=== PATIENT | female | born 1995 | race African-American/Black ===

== ENCOUNTER 2017-06-06 20:35 | Emergency (ER) | payer MEDICAID ==
[~2017-06-06] VITALS: Ht 170.2 cm; Wt 73.5 kg
[2017-06-06 21:34] VITALS: BP 116/77
[2017-06-06] MEDS ORDERED: Acetaminophen 500mg (ES) tab ORAL ONE (21:45)
[2017-06-06 23:08] VITALS: BP 112/81
[2017-06-06] MEDS ORDERED: IBUPROFEN600 MG ORAL (23:30)
[2017-06-06] MEDS ORDERED: ROBAXIN-750750 MG PO (23:30)
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
--- NOTE | 2017-06-07 11:16 | Diagnostic Imaging Report ---
Indications: PAIN Technique: Four views of the cervical spine Comparison: None Findings:Bony alignment is normal. Vertebral body heights are preserved. Disc spaces are preserved. No prevertebral soft tissue swelling. No acute fractures. No dislocations. Vertebral body heights and disc spaces are preserved. Neural foramina are preserved. Impression:Negative
--- NOTE | 2017-06-07 11:17 | Diagnostic Imaging Report ---
Indication: PAIN Technique: 3 views of the lumbar spine Comparison: None Findings:Vertebral body heights are preserved. Disc spaces are preserved. There is an intrauterine device Impression:Negative
== END 2017-06-06 23:08 | disposition home or self-care (01) ==
LOC: EMR 21:30
DX: S39.012A Strain of muscle, fascia and tendon of lower back, initial encounter (principal); S16.1XXA Strain of muscle, fascia and tendon at neck level, initial encounter; V43.52XA Car driver injured in collision with other type car in traffic accident, initial encounter; Y93.9 Activity, unspecified; Y92.410 Unspecified street and highway as the place of occurrence of the external cause
CPT/HCPCS: 72020; 72050; 81025; 99284